=== PATIENT | male | born 1970 | race Two or more races ===

== ENCOUNTER 2019-02-15 14:19 | Emergency (ER) | payer OTHER ==
[~2019-02-15] VITALS: Ht 152.4 cm; Wt 79.4 kg
[2019-02-15] MEDS ORDERED: METFORMIN HCL1000 MG (14:28)
== END 2019-02-15 17:12 | disposition home or self-care (01) ==
LOC: ER 14:19
DX: G44.40 Drug-induced headache, not elsewhere classified, not intractable (principal); T50.995A Adverse effect of other drugs, medicaments and biological substances, initial encounter